=== PATIENT | male | born 1990 | race Caucasian/White ===

== ENCOUNTER 2018-08-26 22:26 | Emergency (ER) | payer OTHER | END 2018-08-27 00:01 | disposition home or self-care (01) | LOC: E/R 08-27 00:01 | DX: R07.9 Chest pain, unspecified (principal); F17.210 Nicotine dependence, cigarettes, uncomplicated | CPT/HCPCS: 71045; 93005; 99284-25 ==

== ENCOUNTER 2018-10-02 01:18 | Emergency (ER) | payer OTHER | END 2018-10-02 05:16 | disposition home or self-care (01) | LOC: FTE 01:18 | DX: R07.89 Other chest pain (principal); F41.9 Anxiety disorder, unspecified; R40.2412 Glasgow coma scale score 13-15, at arrival to emergency department; F17.210 Nicotine dependence, cigarettes, uncomplicated | CPT/HCPCS: 93005; 99283-25 ==